=== PATIENT | female | born 1960 | race Caucasian/White ===

== ENCOUNTER → 2020-12-12 | Outpatient (CLI) | payer OTHER ==
[~2020-12-12] MED LIST: CETI5; CLOB.05TC; FOLI1; LEVSOD88; METTREX2.5; TRIA80TC
== END | disposition home or self-care (01) ==
LOC: LAB 10:55 → LAB SHORT 10:55
DX: L72.3 Sebaceous cyst (principal)
CPT/HCPCS: 87070; 87075; 87205

== ENCOUNTER 2022-08-25 05:58 | Emergency (ER) | payer OTHER ==
[~2022-08-25] VITALS: Ht 162.6 cm; Wt 68.0 kg
[2022-08-25 06:42] LABS: BASOPHILS ABSOLUTE AUTO 0.04 K/mm3 (0.00-0.23); BASOPHILS PERCENT AUTO 1 % (0-2); EOSINOPHILS ABSOLUTE AUTO 0.05 K/mm3 (0.00-0.68); EOSINOPHILS PERCENT AUTO 1 % (0-6); Hematocrit 42.6 % (33.0-51.0); Hemoglobin 14.5 g/dL (11.5-16.0); IMMATURE GRAN ABSOLUTE AUTO 0.03 K/mm3 (0.00-0.10); IMMATURE GRAN PERCENT AUTO 0 % (0-1); LYMPHOCYTES ABSOLUTE AUTO 0.92 K/mm3 (0.84-5.20); LYMPHOCYTES PERCENT AUTO 12 % (21-46); MONOCYTES ABSOLUTE AUTO 0.47 K/mm3 (0.16-1.47); MONOCYTES PERCENT AUTO 6 % (4-13); Mean Corpuscular HGB 31.5 pg (26.0-34.0); Mean Corpuscular Volume 92 fL (80-100); Mean Platelet Volume 9.8 fL (9.1-12.4); NEUTROPHILS PERCENT AUTO 81 % (41-73); Platelet Count 245 K/mm3 (150-400); RDW Coefficient Variation 12.5 % (11.7-14.2); RDW Standard Deviation 42.6 fL (35.1-46.3); Red Blood Cell Count 4.61 M/mm3 (3.80-5.20); White Blood Cell Count 7.71 K/mm3 (4.00-11.30)
[2022-08-25] MEDS ORDERED: ESTEST.62T PO (07:03)
[2022-08-25] MEDS ORDERED: LEVSOD75 PO (07:04)
[2022-08-25] MEDS ORDERED: PROGESTERONE100 MG PO (07:05)
[2022-08-25 07:13] LABS: Albumin, Blood 3.8 g/dL (3.4-5.0); Albumin/Globulin Ratio 1.1 (0.8-1.8); Bilirubin, Total 0.6 mg/dL (0.1-1.0); Bun/Creatinine Ratio 20.4 (12.0-20.0); Calcium, Blood 8.7 mg/dL (8.5-10.1); Creatinine, Blood 0.78 mg/dL (0.40-1.00); Globulin, Blood 3.4 g/dL (2.2-4.0); Potassium, Blood 3.8 mmol/L (3.5-5.5); Total Protein, Blood 7.2 g/dL (6.4-8.2)
[2022-08-25] MEDS ORDERED: MECL25 PO (07:25)
[2022-08-25 07:30] VITALS: BP 119/61
== END 2022-08-25 07:40 | disposition home or self-care (01) ==
LOC: ER 05:58
PROVIDERS: Emergency Medicine
DX: R00.2 Palpitations (principal); R42 Dizziness and giddiness; Z88.8 Allergy status to other drugs, medicaments and biological substances; Z88.2 Allergy status to sulfonamides; Z88.1 Allergy status to other antibiotic agents; Z79.899 Other long term (current) drug therapy
CPT/HCPCS: 36415; 80053; 84484; 85025; 93005; 93010; 96360; 99285-25; J7030

== ENCOUNTER 2022-08-26 11:02 | Emergency (ER) | payer OTHER ==
[~2022-08-26] VITALS: Ht 162.6 cm; Wt 68.0 kg
[~2022-08-26 11:02] MED LIST changes: +ESTEST.62T PO; +LEVSOD75 PO; +MECL25 PO; +PROGESTERONE100 MG PO
[2022-08-26 14:40] VITALS: BP 140/70
== END 2022-08-26 16:00 | disposition home or self-care (01) ==
LOC: ER 11:02
DX: R00.2 Palpitations (principal); R42 Dizziness and giddiness; F17.200 Nicotine dependence, unspecified, uncomplicated; Z88.1 Allergy status to other antibiotic agents; Z88.2 Allergy status to sulfonamides; Z88.8 Allergy status to other drugs, medicaments and biological substances; Z79.899 Other long term (current) drug therapy
CPT/HCPCS: 93005; 93010; 93246; 99283-25

== ENCOUNTER 2023-05-26 07:00 | Day surgery (SDC) | payer OTHER ==
[~2023-05-26] VITALS: Ht 162.6 cm; Wt 68.0 kg
[2023-05-26] MEDS ORDERED: CLIMARA1 EACH (07:26)
[2023-05-26] MEDS ORDERED: Testopel75 MG (07:29)
[2023-05-26 09:14] VITALS: BP 122/68
--- NOTE | 2023-05-26 09:16 | NUR ---
05/26/23 0916 Jeanette Garrett IV DC'D, CATH INTACT. PT TOLERATED WELL. COBAN/GAUZE IN PLACE
== END 2023-05-26 09:16 | disposition home or self-care (01) ==
LOC: ORSCSDS 07:00
PROVIDERS: Internal Medicine Gastroenterology
PROC: 0DJ08ZZ Inspection of Upper Intestinal Tract, Via Natural or Artificial Opening Endoscopic (ICD-10-PCS; principal; 2023-05-26 08:15)
PROC: 0DBP8ZX Excision of Rectum, Via Natural or Artificial Opening Endoscopic, Diagnostic (ICD-10-PCS; principal; 2023-05-26 08:15)
PROC: 0DBN8ZX Excision of Sigmoid Colon, Via Natural or Artificial Opening Endoscopic, Diagnostic (ICD-10-PCS; principal; 2023-05-26 08:15)
DX: K21.9 Gastro-esophageal reflux disease without esophagitis (principal); K63.5 Polyp of colon; K62.1 Rectal polyp; Z12.11 Encounter for screening for malignant neoplasm of colon; Z83.719 Family history of colon polyps, unspecified; E03.9 Hypothyroidism, unspecified; Z79.899 Other long term (current) drug therapy
CPT/HCPCS: 88305; J2704; J7120

== ENCOUNTER → 2023-06-30 | Outpatient (CLI) | payer OTHER ==
[~2023-06-30] MED LIST changes: +CLIMARA1 EACH; +Testopel75 MG
[2023-06-30 08:50] LABS: BASOPHILS ABSOLUTE AUTO 0.03 K/mm3 (0.00-0.23); BASOPHILS PERCENT AUTO 0 % (0-2); EOSINOPHILS ABSOLUTE AUTO 0.03 K/mm3 (0.00-0.68); EOSINOPHILS PERCENT AUTO 0 % (0-6); Hematocrit 42.2 % (33.0-51.0); Hemoglobin 14.1 g/dL (11.5-16.0); IMMATURE GRAN ABSOLUTE AUTO 0.03 K/mm3 (0.00-0.10); IMMATURE GRAN PERCENT AUTO 0 % (0-1); LYMPHOCYTES ABSOLUTE AUTO 0.72 K/mm3 (0.84-5.20); LYMPHOCYTES PERCENT AUTO 8 % (21-46); MONOCYTES ABSOLUTE AUTO 0.66 K/mm3 (0.16-1.47); MONOCYTES PERCENT AUTO 7 % (4-13); Mean Corpuscular HGB 31.8 pg (26.0-34.0); Mean Corpuscular HGB Conc 33.4 g/dL (31.5-36.5); Mean Corpuscular Volume 95 fL (80-100); Mean Platelet Volume 9.4 fL (9.1-12.4); NEUTROPHILS PERCENT AUTO 84 % (41-73); Platelet Count 267 K/mm3 (150-400); RDW Coefficient Variation 12.5 % (11.7-14.2); RDW Standard Deviation 43.3 fL (35.1-46.3); Red Blood Cell Count 4.44 M/mm3 (3.80-5.20); White Blood Cell Count 8.97 K/mm3 (4.00-11.30)
[2023-06-30 09:00] LABS: Albumin, Blood 3.6 g/dL (3.4-5.0); Bilirubin, Total 0.3 mg/dL (0.1-1.0); Bun/Creatinine Ratio 27.1 (12.0-20.0); Calcium, Blood 8.8 mg/dL (8.5-10.1); Creatinine, Blood 0.85 mg/dL (0.40-1.00); Globulin, Blood 3.7 g/dL (2.2-4.0); Potassium, Blood 4.2 mmol/L (3.5-5.5); Total Protein, Blood 7.3 g/dL (6.4-8.2)
== END | disposition home or self-care (01) ==
LOC: LAB SHORT 08:42 → LAB 08:42
PROVIDERS: Emergency Medicine
DX: R19.7 Diarrhea, unspecified (principal)
CPT/HCPCS: 80053; 83690; 85025

== ENCOUNTER → 2023-07-01 | Outpatient (CLI) | payer OTHER ==
[2023-07-01 18:08] LABS: Adenovirus F 40/41 Not Detected (NOT DETECT); Astrovirus Not Detected (NOT DETECT); Campylobacter Sp Not Detected (NOT DETECT); Cryptosporidium Not Detected (NOT DETECT); Cyclospora Cayetanensis Not Detected (NOT DETECT); E. Coli O157 Not Detected (NOT DETECT); Entamoeba Histolytica Not Detected (NOT DETECT); Enteroaggregative E. coli-EAEC Not Detected (NOT DETECT); Enteropathogenic E. coli-EPEC Not Detected (NOT DETECT); Enterotoxigenic E. coli-ETEC Not Detected (NOT DETECT); Giardia Lamblia Not Detected (NOT DETECT); Norovirus GI/GII Not Detected (NOT DETECT); Plesiomonas Shigelloides Not Detected (NOT DETECT); Rotavirus A Not Detected (NOT DETECT); Salmonella Sp Not Detected (NOT DETECT); Sapovirus Not Detected (NOT DETECT); Shiga Toxin-prod E. coli-STEC Not Detected (NOT DETECT); Shigella/Enteroin E. coli-EIEC Not Detected (NOT DETECT); Vibrio Cholerae Not Detected (NOT DETECT); Vibrio Sp Not Detected (NOT DETECT); Yersinia Enterocolitica Not Detected (NOT DETECT)
== END ==
LOC: LAB SHORT 12:55 → LAB 12:55
PROVIDERS: Emergency Medicine
DX: R19.7 Diarrhea, unspecified (principal)
CPT/HCPCS: 87507

== ENCOUNTER → 2023-08-29 | Outpatient (CLI) | payer OTHER | END | disposition home or self-care (01) | LOC: LAB SHORT 08:27 → LAB 08:27 | DX: B35.1 Tinea unguium (principal) | CPT/HCPCS: 88305; 88312 ==

== ENCOUNTER → 2024-08-21 | Outpatient (CLI) | payer OTHER | LOC: LAB 12:26 → LAB SHORT 12:26 | DX: M25.50 Pain in unspecified joint (principal) | CPT/HCPCS: 85651 ==

== ENCOUNTER 2024-11-01 19:03 | Inpatient (IN) | payer OTHER ==
[~2024-11-01] VITALS: Ht 162.6 cm; Wt 65.8 kg
[2024-11-01 19:31] LABS: BASOPHILS ABSOLUTE AUTO 0.04 K/mm3 (0.00-0.23); BASOPHILS PERCENT AUTO 1 % (0-2); EOSINOPHILS ABSOLUTE AUTO 0.06 K/mm3 (0.00-0.68); EOSINOPHILS PERCENT AUTO 1 % (0-6); Hematocrit 39.5 % (33.0-51.0); Hemoglobin 13.3 g/dL (11.5-16.0); IMMATURE GRAN ABSOLUTE AUTO 0.04 K/mm3 (0.00-0.10); IMMATURE GRAN PERCENT AUTO 1 % (0-1); LYMPHOCYTES ABSOLUTE AUTO 1.48 K/mm3 (0.84-5.20); LYMPHOCYTES PERCENT AUTO 18 % (21-46); MONOCYTES ABSOLUTE AUTO 0.73 K/mm3 (0.16-1.47); MONOCYTES PERCENT AUTO 9 % (4-13); Mean Corpuscular HGB 32.4 pg (26.0-34.0); Mean Corpuscular HGB Conc 33.7 g/dL (31.5-36.5); Mean Corpuscular Volume 96 fL (80-100); Mean Platelet Volume 9.6 fL (9.1-12.4); NEUTROPHILS ABSOLUTE AUTO 5.85 K/mm3 (1.96-9.15); NEUTROPHILS PERCENT AUTO 71 % (41-73); Platelet Count 258 K/mm3 (150-400); RDW Coefficient Variation 12.4 % (11.7-14.2); RDW Standard Deviation 44.3 fL (35.1-46.3)
[2024-11-01 19:50] LABS: Albumin, Blood 3.6 g/dL (3.4-5.0); Bilirubin, Total 0.4 mg/dL (0.1-1.0); Bun/Creatinine Ratio 29.6 (12.0-20.0); Calcium, Blood 8.8 mg/dL (8.5-10.1); Creatinine, Blood 0.74 mg/dL (0.40-1.00); Globulin, Blood 3.7 g/dL (2.2-4.0); Potassium, Blood 4.1 mmol/L (3.5-5.5); Total Protein, Blood 7.3 g/dL (6.4-8.2)
[2024-11-01] MEDS ORDERED: Clopidogrel Bisulfate 300 MG TABLET PO ONE (21:25)
[2024-11-01] MEDS ORDERED: Meclizine HCl 25 MG Tab PO PRN (21:30)
[2024-11-01] MEDS ORDERED: Magnesium Hydroxide Conc 10 ML UDC PO PRN (21:30)
[2024-11-01 21:51] LABS: Thyroid Stimulating Hormone 3.5 uIU/mL (0.360-4.800)
[2024-11-01] MEDS ORDERED: Atorvastatin 40 MG Tab PO SCH (21:56)
[2024-11-01 22:53] VITALS: BP 128/61
[2024-11-02] VITALS (7 sets, daily range): BP systolic 102–146; BP diastolic 58–69
--- NOTE | 2024-11-02 05:13 | NUR ---
SHIFT SUMMARY PT ARRIVED FROM THE ER AROUND 2300. ORIENTED TO ROOM. AT BEDSIDE UNTIL PT WAS SETTLED. A&Ox4 AND PLEASANT. PT REPORTS INCREASED VERTIGO THAT SEEMS WORSE WHEN AMBULATING. PT ALSO REPORTS OCCASIONAL LEFT SIDE WEAKNESS THAT SHE ALSO DESCRIBED TINGLING. BOTH THE WEAKNESS AND VERTIGO WHERE WORSE WHILE AMBULATING AND IMPROVED WHEN BACK IN BED. NO OBVIOUS DEFICITS NOTED DRUING NEURO CHECKS. PT SR IN THE 60's. VSS. SCD's USED DURING THE NIGHT. BED IN LOWEST POSITION AND CALL LIGHT IN REACH.
[2024-11-02] MEDS ORDERED: Levothyroxine Sodium 0.075 MG Tab PO SCH (06:00)
[2024-11-02 06:56] LABS: CHOL/HDL RATIO 2.3; Cholesterol 146 mg/dL (50-200); HDL Cholesterol 64 mg/dL (>39); LDL/HDL RATIO 1.2; Low Density Lipoprotein Chol 75 mg/dL (0-110); Triglycerides 33 mg/dL (30-160); Very Low Density Lipoprot Chol 7 mg/dL (6-32)
[2024-11-02] MEDS ORDERED: Aspirin 81 MG Chew PO SCH (09:00)
[2024-11-02] MEDS ORDERED: Enoxaparin 40 MG/0.4 ML SYR SC SCH (09:00)
[2024-11-02] MEDS ORDERED: Clopidogrel Bisulfate 75 MG Tab PO SCH (09:00)
[2024-11-02] MEDS ORDERED: Acetaminophen 325 MG TABLET PO PRN (10:35)
[2024-11-02] MEDS ORDERED: DICLOFENAC-MIS1 EAC5 PO (12:05)
--- NOTE | 2024-11-02 17:24 | NUR ---
SHIFT SUMMARY AOX4, SBA TO THE BR. MEDICATED FOR VERTIGO AND PICKENS PER THE EMAR. AT THE BS ALL SHIFT. CALLS AND MAKES HER NEEDS KNOWN. REPOSITIONS SELF IN BED. NO EVENTS PER TELE. NO DEFICITS NOTED, PT APPEARS TO BE IMPROVING AT THE SHIFT PROGRESSES. CALL LIGHT WITHIN REACH, BED LOCKED AND IN THE LOWEST POSITION. WILL REPORT TO ONCOMING NURSE.
[2024-11-02] MEDS ORDERED: Progesterone, Micronized 100 MG Cap PO SCH (21:00)
[2024-11-03 04:16] VITALS: BP 117/59
--- NOTE | 2024-11-03 05:39 | NUR ---
SHIFT SUMMARY PT HAS BEEN RESTING IN BED COMFORTABLY OVERNIGHT. SHE IS HERE FOR POSSIBLE CVA. SHE HAS BEEN AOX4, CALM AND COOPERATIVE. SHE REPORTED THAT HER L SIDED WEAKNESS HAS BEEN GETTING BETTER THROUGHOUT THE NIGHT. SHE ALSO REPORTED S/S OF VERTIGO, SOHAIL WHEN MOVING HEAD/EYES AND UP AND WALKING W/ FWW. PT IS 1PA TO RESTROOM. PT HAS TELEMETRY ON, NO EVENTS OVERNIGHT. SHE HAS C/O DRY AIR, WHICH HAS CAUSED HER SINUS PRESSURE AND NOSEBLEEDS, BUT NO OCCURRENCES OVERNIGHT. OTHERWISE, PT HAD UNEVENTFUL NIGHT.
[2024-11-03 07:40] VITALS: BP 115/66
[2024-11-03 11:42] VITALS: BP 118/56
[2024-11-03] MEDS ORDERED: MethylPREDNISolone Sod Succ 125 MG Vial IV ONE (12:50)
[2024-11-03] MEDS ORDERED: NS 250 ML IV PRN (12:50)
[2024-11-03 15:34] VITALS: BP 121/56
[2024-11-03] MEDS ORDERED: DIVA250ER PO (16:41)
--- NOTE | 2024-11-03 17:03 | NUR ---
DISCHARGE NOTE PT DISCHARGED TO HOME, PICKED UP BY HER . IV REMOVED. TELE RETURNED. DISCHARGE EDUCATION AND INFORMATION PROVIDED TO THE PT. MEDICATIONS FAXED TO THE [facility] OF HER CHOICE. PERSONAL BELONGINGS RETURNED.
[2024-11-03] MEDS ORDERED: Divalproex Sodium 500 MG TABCR PO SCH (21:00)
== END 2024-11-03 18:00 | disposition home or self-care (01) | DRG 103 ==
LOC: ER 19:03 → MEDS 21:25
PROVIDERS: Student in an Organized Health Care Education/Training Program; ADMIT Internal Medicine
DX: G43.409 Hemiplegic migraine, not intractable, without status migrainosus (principal); R53.1 Weakness; E03.9 Hypothyroidism, unspecified; R42 Dizziness and giddiness; H93.8X1 Other specified disorders of right ear; Z88.2 Allergy status to sulfonamides; Z88.1 Allergy status to other antibiotic agents; Z88.8 Allergy status to other drugs, medicaments and biological substances; Z79.02 Long term (current) use of antithrombotics/antiplatelets; Z79.82 Long term (current) use of aspirin; Z79.890 Hormone replacement therapy; Z79.899 Other long term (current) drug therapy; Z98.890 Other specified postprocedural states; Z90.710 Acquired absence of both cervix and uterus; Z87.891 Personal history of nicotine dependence
CPT/HCPCS: 36415; 70450; 70551; 80053; 80061; 83690; 84443; 84484; 85025; 93005; 93010; 93306; 93880; 97116; 97161; 97530; 99285-25; A9270; J1650; J2919